=== PATIENT | female | born 1965 | race Two or more races ===

== ENCOUNTER 2021-09-16 15:49 | Emergency (ER) | payer MEDICAID, OTHER ==
[~2021-09-16] VITALS: Ht 152.4 cm; Wt 68.0 kg
[2021-09-16 16:02] VITALS: BP 103/72
== END 2021-09-16 22:18 | disposition left against medical advice (07) ==
LOC: ER 15:49 → EDBD 15:49 → ER 22:18
DX: R51.9 Headache, unspecified (principal); F12.10 Cannabis abuse, uncomplicated; F15.10 Other stimulant abuse, uncomplicated; V49.9XXA Car occupant (driver) (passenger) injured in unspecified traffic accident, initial encounter; Y93.89 Activity, other specified; Y92.89 Other specified places as the place of occurrence of the external cause; Y99.8 Other external cause status
CPT/HCPCS: 70450; 71045